=== PATIENT | female | born 1960 | race Two or more races ===

== ENCOUNTER → 2018-10-19 | Outpatient (CLI) | payer OTHER ==
--- NOTE | 2018-10-19 13:17 | WOMENS IMAGING REPORT ---
EXAM DESCRIPTION: BONE DENSITY HIP/SPINE COMPLETED DATE/TIME: 10/19/2018 1:02 pm REASON FOR STUDY: M81.0 AGRE ELATED OSTEOPOROSIS WITHOUT CURRENT PATHOLOGICAL FRACTURE M81.0 AGE-RE LATED OSTEOPOROSIS W/O CURRENT PATHOLOGICAL FRAC COMPARISON: None. TECHNIQUE: Dual-Energy X-ray Absorptiometry (DEXA) of the AP Spine and Hip. LIMITATIONS: None. FINDINGS: LUMBAR SPINE: The bone mineral density (BMD) measured from L1-L4 in the AP projection correlates with a T-score of -2.1, which is osteopenia as defined by the World Health Organization. HIP: The bone mineral density (BMD) measured in the left hip correlates with a T-score of -2.8, which is o steoporosis as defined by the World Health Organization. IMPRESSION: 1. LUMBAR SPINE: OSTEOPENIA. 2. HIP: OSTEOPOROSIS. COMMENT: The World Health Organization defines low BMD as follows: T-score: Normal: Greater than -1.0 Osteopenia: Between -1.0 and -2.5 Osteoporosis: Less than -2.5 without fractures Established osteoporosis: Less than -2.5 with fractures In general, you may wish to consider: Diagnosis Treatment Follow-up DEXA Normal BMD Prevention 2-3 years Osteopenia Prevention/Therapy 1-2 years Osteoporosis Therapy Yearly TECHNICAL DOCUMENTATION: JOB ID: [id number]- All Rights Reserved Reading location - IP/workstation name: [email or web address]
== END ==
LOC: WI 12:48 → EDSEX 13:00
PROVIDERS: ATTEND Physician Assistant
DX: M81.0 Age-related osteoporosis without current pathological fracture (principal)
CPT/HCPCS: 77080

== ENCOUNTER 2018-11-13 12:59 | Inpatient (IN) | payer OTHER ==
[2018-11-13] MEDS ORDERED: HYDROMORPHONE HCL INJ/PF 2 MG/ML AMPULE IV ONE ×2 (13:47)
--- NOTE | 2018-11-13 13:53 | ER Document Report ---
ED General - General Chief Complaint: Fall Stated Complaint: FALL RIGHT LEG PAIN Time Seen by Provider: 11/13/18 13:37 Primary Care Provider: YUE ESPINOSA PA [Primary Care Provider] - Follow up as needed TRAVEL OUTSIDE OF THE [place] IN LAST 30 DAYS: No - HPI Notes: Patient is a 58-year-old female with a history of MS who presents to the emergency department complaining of right hip pain status post fall prior to arrival. Patient states that she was on a tile floor when she reached for her portable table on wheels. Patient states that the table was not locked in place and she fell on her right hip. Patient states that she did not hit any other part of her body and did not have any loss of consciousness. Patient states that EMS had to help her off the floor because range of motion or movement in that leg increases her pain in the hip area. She otherwise has been feeling well and has been eating and drinking without difficulty. She has been able to urinate normally and have normal bowel movements prior. She is not on any blood thinning medication. Denies any headache, fever, head injury, neck pain, changes in vision/speech/mentation/hearing, URI, sore throat, chest pain, palpitations, syncope, cough, shortness of breath, wheeze, dyspnea, abdominal pain, nausea/vomiting/diarrhea, urinary retention, dysuria, hematuria, loss of control of bowel or bladder, numbness/tingling, saddle anesthesia, muscle paralysis, or rash. Past Medical History - Social History Smoking Status: Never Smoker Family History: Reviewed & Not Pertinent Review of Systems - Review of Systems -: Yes All other systems reviewed and negative Physical Exam - Notes Notes: PHYSICAL EXAMINATION: accompanied by female tech GENERAL: Well-appearing, well-nourished and in no acute distress. A&Ox4. Answers questions appropriately. HEAD: Atraumatic, normocephalic. Non-tender. No quick sign EYES: Pupils equal round and reactive to light, extraocular movements intact, sclera anicteric, conjunctiva are normal. No raccoon eyes/entrapment ENT: EAC clear b/l. TM's intact b/l without erythema, fluid, or perforation. Nares patent and without discharge. oropharynx clear without exudates. No tonsilar hypertrophy or erythema. Moist mucous membranes. No sinus tenderness. No hemotympanum/CSF discharge. NECK: Normal range of motion, supple without lymphadenopathy. No rigidity. No midline tenderness. Chest: No flail chest. equal rise/fall. Non-tender LUNGS: Breath sounds clear to auscultation bilaterally and equal. No wheezes rales or rhonchi. HEART: Regular rate and rhythm without murmurs, rubs, gallops. ABDOMEN: Soft, nontender, nondistended abdomen. No guarding, no rebound. Normal bowel sounds present. No CVA tenderness bilaterally. Musculoskeletal: Rt hip: LROM to passive/active due to pain. + tenderness rt proximal femur area to palp. N/V intact distal. No obvious deformity or ecchymosis/erythema. Ext's otherwise b/l: FROM to passive/active. Strength 5+/5. No deficits noted. No bony tenderness of extremities. Back: FROM to passive/active. Strength 5+/5. No vertebral point tenderness, stepoffs, or deformities. No other bony tenderness or ecchymosis. SLR negative b/l. Extremities: No cyanosis, clubbing, or edema b/l. Peripheral pulses 2+. Capillary refill less than 2 seconds. NEUROLOGICAL: NIH 0. GCS 15. Cranial nerves grossly intact. Normal speech. Normal sensory, motor exams (not pertaining to Rt hip). Reflexes 2+ b/l. NELSY's negative. Pronator drift negative. PSYCH: Normal mood, normal affect. SKIN: Warm, Dry, normal turgor, no rashes or lesions noted. Course - Re-evaluation Re-evalutation: 11/13/18 14:59 Pt presents with an intertrochanteric right hip fracture. Pre-op work up ordered. Last NPO was 11am. Call placed to Arabella [facility], accepted pt for admit. Pt/family in agreement. Vitals otherwise acceptable. Discharge - Discharge Clinical Impression: Closed right hip fracture Qualifiers: Encounter type: initial encounter Qualified Code(s): S72.001A - Fracture of unspecified part of neck of right femur, initial encounter for closed fracture Condition: Stable Disposition: ADMITTED INPATIENT Admitting Provider: Dr. Corrales Unit Admitted: Surgical Floor Referrals: YUE ESPINOSA PA [Primary Care Provider] - Follow up as needed
--- NOTE | 2018-11-13 14:59 | RADIOLOGY REPORT (SQ) ---
EXAM DESCRIPTION: HIP RIGHT AP/LATERAL COMPLETED DATE/TIME: 11/13/2018 2:22 pm REASON FOR STUDY: pain s/p fall COMPARISON: None. NUMBER OF VIEWS: Two views. TECHNIQUE: AP pelvis and additional frog-leg view of the right hip. LIMITATIONS: None. FINDINGS: MINERALIZATION: Normal. RIGHT HIP: Displaced intertrochanteric right hip fracture. The fracture extends into the lesser tro chanter of the hip. The proximal fracture fragment is rotated medially. LEFT HIP: No fracture or dislocation. No worrisome bone lesions. PUBIS AND ISCHIUM: No fracture. PELVIS: No fracture. SACRUM: No fracture or dislocation. No worrisome bone lesions. LOWER LUMBAR SPINE: No fracture or dislocation. No worrisome bone lesions. No significant disc disea se. SOFT TISSUES: Soft tissue edema. OTHER: No other significant finding. IMPRESSION: 1. Displaced slightly comminuted intertrochanteric right hip fracture. COMMENT: 1. The results of this examination were discussed with the emergency department provider o n 11/13/2018 at 14:52 hours. TECHNICAL DOCUMENTATION: JOB ID: [id number] [employer]- All Rights Reserved Reading location - IP/workstation name: [email or web address]
[2018-11-13] MEDS ORDERED: METOCLOPRAMIDE HCL INJ/PF 10 MG/2 ML SDV IV ONE (15:09)
--- NOTE | 2018-11-13 15:11 | RADIOLOGY REPORT (SQ) ---
EXAM DESCRIPTION: CHEST SINGLE VIEW COMPLETED DATE/TIME: 11/13/2018 3:02 pm REASON FOR STUDY: pre-op COMPARISON: None. NUMBER OF VIEWS: One view. TECHNIQUE: Single frontal radiographic view of the chest acquired. LIMITATIONS: None. FINDINGS: LUNGS AND PLEURA: The lung kendrick are hyperexpanded but clear. No consolidation or effusi ons. No pneumothorax. MEDIASTINUM AND HILAR STRUCTURES: No masses. Contour normal. HEART AND VASCULAR STRUCTURES: Heart normal in size. Normal vasculature. BONES: No acute findings. HARDWARE: None in the chest. OTHER: No other significant finding. IMPRESSION: Hyperexpansion otherwise negative chest. TECHNICAL DOCUMENTATION: JOB ID: [id number] [employer]- All Rights Reserved Reading location - IP/workstation name: [email or web address]
[2018-11-13] MEDS ORDERED: NORMAL SALINE 1000 ML 1,000 ML IV ONE (15:20)
[2018-11-13 15:38] LABS: ABSOLUTE LYMPHOCYTES (AUTO) 0.7 10^3/uL (0.5-4.7); ABSOLUTE MONOCYTES (AUTO) 0.5 10^3/uL (0.1-1.4); ABSOLUTE NEUT (AUTO) 9.1 10^3/uL (1.7-8.2); BASOPHILS % (AUTO) 0.5 % (0-2); EOSINOPHILS % (AUTO) 0.1 % (0-6); HEMATOCRIT 37.7 % (36.0-47.0); HEMOGLOBIN 12.6 g/dL (12.0-15.5); LYMPHOCYTES % (AUTO) 7.2 % (13-45); MEAN CORPUSCULAR HEMOGLOBIN 30.8 pg (27.0-33.4); MEAN CORPUSCULAR HGB CONC 33.3 g/dL (32.0-36.0); MEAN CORPUSCULAR VOLUME 93 fl (80-97); MONOCYTES % (AUTO) 4.7 % (3-13); PLATELET COUNT 215 10^3/uL (150-450); RED BLOOD COUNT 4.08 10^6/uL (3.72-5.28); RED CELL DISTRIBUTION WIDTH 12.6 % (11.5-14.0); SEGMENTED NEUTROPHILS % (AUTO) 87.5 % (42-78); TOTAL CELLS COUNTED % (AUTO) 100 %; WHITE BLOOD COUNT 10.4 10^3/uL (4.0-10.5)
[2018-11-13 15:55] LABS: INTERNATIONAL RATION (INR) 1.06; PROTHROMBIN TIME 14.3 SEC (11.4-15.4)
[2018-11-13 15:56] LABS: PARTIAL THROMBOPLASTIN TIME 23.5 SEC (23.5-35.8)
[2018-11-13 16:06] LABS: ALANINE AMINOTRANSFERASE 38 U/L (9-52); ALBUMIN 4.1 g/dL (3.5-5.0); ALKALINE PHOSPHATASE 69 U/L (38-126); ANION GAP 10 (5-19); ASPARTATE AMINO TRANSFERASE 23 U/L (14-36); BILIRUBIN,DIRECT 0.2 mg/dL (0.0-0.4); BILIRUBIN,TOTAL 0.9 mg/dL (0.2-1.3); BLOOD UREA NITROGEN 29 mg/dL (7-20); CALCIUM 9.6 mg/dL (8.4-10.2); CARBON DIOXIDE 27 mmol/L (22-30); CHLORIDE 104 mmol/L (98-107); GLUCOSE 128 mg/dL (75-110); POTASSIUM 4.1 mmol/L (3.6-5.0); SODIUM 140.8 mmol/L (137-145); TOTAL PROTEIN 6.8 g/dL (6.3-8.2)
--- NOTE | 2018-11-13 16:45 | PDOC H&P ---
History of Present Illness Admission Date/PCP: 11/13/18 15:09 ERICK GUILLAUME MD History of Present Illness: PRISCILLA GOODWIN is a 58 year old female The patient is a 58-year-old white female with a past medical history for possible sclerosis who slipped and fell at home and sustained a right hip injury. She was a community ambulator prior to the fall. She was brought to the emergency room where a right intertrochanteric femur fracture was identified. She is admitted to the orthopedic service for fracture management. Past Medical History Medical History: None - Multiple sclerosis, osteoporosis Pulmonary Medical History: Reports: None EENT Medical History: Reports: None Neurological Medical History: Reports: Multiple Sclerosis Endocrine Medical History: Reports: None Malignancy Medical History: Reports: None GI Medical History: Reports: None Musculoskeltal Medical History: Reports: None Past Surgical History Past Surgical History: Reports: None Social History Information Source: Patient, [facility] Records Lives with: Spouse/Significant other Smoking Status: Never Smoker - Advance Directive Resuscitation Status: Full Code Family History Family History: Reviewed & Not Pertinent Parental Family History Reviewed: No Children Family History Reviewed: No Sibling(s) Family History Reviewed.: No Medication/Allergy Home Medications: Dimethyl Fumarate [Tecfidera] 240 mg PO DAILY 11/13/18 Allergies/Adverse Reactions: No Known Allergies Allergy (Unverified 11/13/18 15:22) Review of Systems All systems: as per H Physical Exam Vital Signs: Temp Pulse Resp BP Pulse Ox 36.9 C 79 18 125/58 L 100 11/13/18 13:56 11/13/18 13:56 11/13/18 13:56 11/13/18 13:56 11/13/18 13:56 Physical Exam: The patient is a thin relatively apprehensive middle-aged white female lying in bed in minor to moderate distress. Her is seated nearby in the recliner. The patient is alert, oriented, and appropriate. General appearance: PRESENT: mild distress Head exam: PRESENT: normocephalic Respiratory exam: PRESENT: unlabored Cardiovascular exam: PRESENT: RRR Pulses: PRESENT: +1 pedal pulses bilateral GI/Abdominal exam: PRESENT: soft Rectal exam: PRESENT: deferred Extremities exam: PRESENT: other - Right lower extremity is flexed and externally rotated. Distal neurovascular examination is intact. Neurological exam: PRESENT: alert, awake, oriented to person, oriented to place, oriented to time, oriented to situation. ABSENT: motor sensory deficit Psychiatric exam: PRESENT: appropriate affect, normal mood. ABSENT: homicidal ideation, suicidal ideation Skin exam: PRESENT: dry, intact, warm. ABSENT: cyanosis, rash Results Laboratory Results: 11/13/18 15:28 11/13/18 15:28 11/13/18 11/13/18 15:28 15:28 WBC 10.4 RBC 4.08 Hgb 12.6 Hct 37.7 MCV 93 MCH 30.8 MCHC 33.3 RDW 12.6 Plt Count 215 Seg Neutrophils % 87.5 H Lymphocytes % 7.2 L Monocytes % 4.7 Eosinophils % 0.1 Basophils % 0.5 Absolute Neutrophils 9.1 H Absolute Lymphocytes 0.7 Absolute Monocytes 0.5 Absolute Eosinophils 0.0 Absolute Basophils 0.0 Sodium 140.8 Potassium 4.1 Chloride 104 Carbon Dioxide 27 Anion Gap 10 BUN 29 H Creatinine 0.54 Est GFR ( Amer) > 60 Est GFR (Non-Af Amer) > 60 Glucose 128 H Calcium 9.6 Total Bilirubin 0.9 AST 23 ALT 38 Alkaline Phosphatase 69 Total Protein 6.8 Albumin 4.1 Impressions: Hip/Pelvis X-Ray 11/13/18 13:46 IMPRESSION: 1. Displaced slightly comminuted intertrochanteric right hip fracture. Chest X-Ray 11/13/18 14:40 IMPRESSION: Hyperexpansion otherwise negative chest. Status: Imported from PACS Assessment & Plan - Diagnosis (1) Intertrochanteric fracture of right hip Qualifiers: Encounter type: initial encounter Fracture type: closed Fracture alig nment: displaced Qualified Code(s): S72.141A - Displaced intertrochanteric fracture of right femur, initial encounter for closed fracture Is this a current diagnosis for this admission?: Yes Plan: 58-year-old white female community ambulator with a right intertrochanteric femur fracture. Patient recently had a diagnosis of osteoporosis based on bone DEXA study in September 2018. Tentative plan will be for an open reduction internal fixation of the fracture and then address the underlying osteoporosis. - Time Time Spent: 50 to 70 Minutes Anticipated discharge: Home with Homehealth Within: within 48 hours
[2018-11-13] MEDS ORDERED: ONDANSETRON HCL INJ/PF 4 MG/2 ML SDV IV PRN (16:57)
[2018-11-13] MEDS: MORPHINE SULFATE 10 MG/ML INJ IV PRN ×2 (18:59→22:12)
--- NOTE | 2018-11-13 22:18 | Progress Note ---
Provider Note Provider Note: pt seen and examine and stable for surgery review all lab/cxr/medication/ekg
[2018-11-14] MEDS: MORPHINE SULFATE 10 MG/ML INJ IV PRN ×6 (02:02→22:17)
[2018-11-14] MEDS ORDERED: CEFAZOLIN 2 GM/D5W RTU 2 GM/50 ML RTUPB IV PRN (05:00)
[2018-11-14] MEDS ORDERED: TRANEXAMIC ACID INJ/PF 1,000 MG/10 ML SDV IV PRN (05:00)
[2018-11-14 06:10] LABS: ABSOLUTE LYMPHOCYTES (AUTO) 0.9 10^3/uL (0.5-4.7); ABSOLUTE MONOCYTES (AUTO) 0.8 10^3/uL (0.1-1.4); ABSOLUTE NEUT (AUTO) 5.8 10^3/uL (1.7-8.2); BASOPHILS % (AUTO) 0.3 % (0-2); EOSINOPHILS % (AUTO) 0.1 % (0-6); HEMATOCRIT 34.6 % (36.0-47.0); HEMOGLOBIN 11.8 g/dL (12.0-15.5); LYMPHOCYTES % (AUTO) 12.1 % (13-45); MEAN CORPUSCULAR HEMOGLOBIN 31.1 pg (27.0-33.4); MEAN CORPUSCULAR HGB CONC 34.1 g/dL (32.0-36.0); MEAN CORPUSCULAR VOLUME 91 fl (80-97); MONOCYTES % (AUTO) 10.7 % (3-13); PLATELET COUNT 143 10^3/uL (150-450); RED CELL DISTRIBUTION WIDTH 12.4 % (11.5-14.0); SEGMENTED NEUTROPHILS % (AUTO) 76.8 % (42-78); TOTAL CELLS COUNTED % (AUTO) 100 %; WHITE BLOOD COUNT 7.5 10^3/uL (4.0-10.5)
[2018-11-14 06:34] LABS: ANION GAP 8 (5-19); BLOOD UREA NITROGEN 20 mg/dL (7-20); CALCIUM 9.2 mg/dL (8.4-10.2); CARBON DIOXIDE 26 mmol/L (22-30); CHLORIDE 106 mmol/L (98-107); GLUCOSE 116 mg/dL (75-110); POTASSIUM 4.1 mmol/L (3.6-5.0); SODIUM 140.3 mmol/L (137-145)
[2018-11-14] MEDS: RINGERS SOLUTION,LACTATED 1,000 ML IV PRN ×2 (07:34→16:36)
--- NOTE | 2018-11-14 10:32 | EKG REPORT ---
SEVERITY:- ABNORMAL ECG - SINUS RHYTHM LEFT ATRIAL ABNORMALITY BORDERLINE T ABNORMALITIES, ANT-LAT LEADS BORDERLINE PROLONGED QT INTERVAL : Confirmed by: Artur Mcdaniel 14-Nov-2018 10:30:57
--- NOTE | 2018-11-14 12:29 | PDOC PROGRESS REPORT ---
Subjective Progress Note for:: 11/14/18 Subjective:: this is a 58-year-old female with a history of the multiple sclerosis currently on oral agent currently see a [place] [facility] used to see at [facility] with a history of the neurogenic bladder history of the recurrent urinary tract infections came to the emergency department with the fall and a right hip fracture admitted for the orthopedic surgery as per the medical consult Patient's denied any heart problems denied any strokes Patient is denied any chest pain to than any shortness of the breath Discussed with the on the bedside no other concerns Patient EKG chest x-ray's blood work is all stable Patient is currently scheduled for the surgery per orthopedic surgeon Patients may be get a benefit to go to the rehab after the surgery Reason For Visit: RIGHT HIP FRACTURE Right hip fracture Physical Exam Vital Signs: Temp Pulse Resp BP Pulse Ox 98.3 F 97 14 131/75 H 100 11/14/18 00:20 11/14/18 00:20 11/14/18 00:20 11/14/18 00:20 11/14/18 00:20 Intake & Output 11/13/18 11/14/18 11/15/18 06:59 06:59 06:59 Intake Total 1250 Output Total 1450 Balance -200 Weight 54.9 kg General appearance: PRESENT: no acute distress, well-developed, well-nourished Head exam: PRESENT: atraumatic, normocephalic Eye exam: PRESENT: conjunctiva pink, EOMI, PERRLA. ABSENT: scleral icterus Ear exam: PRESENT: normal external ear exam Mouth exam: PRESENT: moist, tongue midline Neck exam: PRESENT: full ROM. ABSENT: carotid bruit, JVD, lymphadenopathy, thyromegaly Respiratory exam: PRESENT: clear to auscultation alida Cardiovascular exam: PRESENT: RRR. ABSENT: diastolic murmur, rubs, systolic murmur Pulses: PRESENT: normal dorsalis pedis pul, +2 pedal pulses bilateral Vascular exam: PRESENT: normal capillary refill GI/Abdominal exam: PRESENT: normal bowel sounds, soft. ABSENT: distended, guarding, mass, organolmegaly, rebound, tenderness Rectal exam: PRESENT: deferred Extremities exam: ABSENT: pedal edema Neurological exam: PRESENT: alert, awake, oriented to person, oriented to place, oriented to time, oriented to situation, CN II-XII grossly intact. ABSENT: motor sensory deficit Psychiatric exam: PRESENT: appropriate affect, normal mood. ABSENT: homicidal ideation, suicidal ideation Skin exam: PRESENT: dry, intact, warm. ABSENT: cyanosis, rash Results Laboratory Results: 11/14/18 05:30 11/14/18 05:30 11/13/18 11/13/18 11/14/18 15:28 15:28 05:30 WBC 10.4 7.5 RBC 4.08 3.80 Hgb 12.6 11.8 L Hct 37.7 34.6 L MCV 93 91 MCH 30.8 31.1 MCHC 33.3 34.1 RDW 12.6 12.4 Plt Count 215 143 L Seg Neutrophils % 87.5 H 76.8 Lymphocytes % 7.2 L 12.1 L Monocytes % 4.7 10.7 Eosinophils % 0.1 0.1 Basophils % 0.5 0.3 Absolute Neutrophils 9.1 H 5.8 Absolute Lymphocytes 0.7 0.9 Absolute Monocytes 0.5 0.8 Absolute Eosinophils 0.0 0.0 Absolute Basophils 0.0 0.0 Sodium 140.8 Potassium 4.1 Chloride 104 Carbon Dioxide 27 Anion Gap 10 BUN 29 H Creatinine 0.54 Est GFR ( Amer) > 60 Est GFR (Non-Af Amer) > 60 Glucose 128 H Calcium 9.6 Total Bilirubin 0.9 AST 23 ALT 38 Alkaline Phosphatase 69 Total Protein 6.8 Albumin 4.1 11/14/18 05:30 WBC RBC Hgb Hct MCV MCH MCHC RDW Plt Count Seg Neutrophils % Lymphocytes % Monocytes % Eosinophils % Basophils % Absolute Neutrophils Absolute Lymphocytes Absolute Monocytes Absolute Eosinophils Absolute Basophils Sodium 140.3 Potassium 4.1 Chloride 106 Carbon Dioxide 26 Anion Gap 8 BUN 20 Creatinine 0.44 L Est GFR ( Amer) > 60 Est GFR (Non-Af Amer) > 60 Glucose 116 H Calcium 9.2 Total Bilirubin AST ALT Alkaline Phosphatase Total Protein Albumin Impressions: Hip/Pelvis X-Ray 11/13/18 13:46 IMPRESSION: 1. Displaced slightly comminuted intertrochanteric right hip f racture. Chest X-Ray 11/13/18 14:40 IMPRESSION: Hyperexpansion otherwise negative chest. Assessment & Plan - Diagnosis (1) Intertrochanteric fracture of right hip Qualifiers: Encounter type: initial encounter Fracture type: closed Fracture alignment: displaced Qualified Code(s): S72.141A - Displaced intertrochanteric fracture of right femur, initial encounter for closed fracture Is this a current diagnosis for this admission?: Yes Plan: This is scheduled for the surgery per orthopedic surgeon (2) Multiple sclerosis Is this a current diagnosis for this admission?: Yes Plan: Continues to p.o. medication and follow-up with neurology (3) Neurogenic bladder Is this a current diagnosis for this admission?: Yes Plan: Patient is currently having indwelling catheter (4) Osteoporosis Qualifiers: Presence of current pathological fracture: unspecified Is this a current diagnosis for this admission?: Yes Plan: Discussed with the patient and the outpatients Reclast injections - Time Time Spent with patient: 25-34 minutes Medications reviewed and adjusted accordingly: Yes Anticipated discharge: SNF Within: Other - Inpatient Certification Based on my medical assessment, after consideration of the patient's comorbidities, presenting symptoms, or acuity I expect that the services needed warrant INPATIENT care.: Yes I certify that my determination is in accordance with my understanding of Medicare's requirements for reasonable and necessary INPATIENT services [42 CFR 412.3e].: Yes Medical Necessity: Need for Surgery Post Hospital Care: D/C [employer] Re[employer] Inspector Documentation - Plan Summary Plan Summary: Continues the pain medications per the surgeon Continues to current home medications Discussed with the and the bedside
[2018-11-14] MEDS ORDERED: TRANEXAMIC ACID INJ/PF 1,000 MG/10 ML SDV IV ONE ×2 (12:43→16:00)
[2018-11-14] MEDS ORDERED: CEFAZOLIN INJ 1 GM VIAL ONE (12:43)
[2018-11-14] MEDS ORDERED: MIDAZOLAM 2 MG/2 ML INJ ONE (12:52)
[2018-11-14] MEDS ORDERED: FENTANYL CITRATE INJ/PF 100 MCG/2 ML AMPUL ONE (12:52)
[2018-11-14] MEDS ORDERED: PROPOFOL INJ 200 MG/20 ML VIAL IV ONE (12:53)
[2018-11-14] MEDS ORDERED: EPHEDRINE SULFATE INJ 50 MG/1 ML AMPULE ONE (12:53)
[2018-11-14] MEDS ORDERED: DIPHENHYDRAMINE HCL 50 MG/ML VIAL IV PRN (13:51)
[2018-11-14] MEDS ORDERED: ONDANSETRON HCL INJ/PF 4 MG/2 ML SDV IV PRN (13:51)
[2018-11-14] MEDS ORDERED: OXYCODONE-ACETAMINOPHEN 5-325 MG TABLET PO PRN ×2 (13:51)
[2018-11-14] MEDS ORDERED: MORPHINE SULFATE 10 MG/ML INJ IV PRN (13:51)
[2018-11-14] MEDS ORDERED: PROMETHAZINE HCL INJ 25 MG/1 ML VIAL IV PRN ×2 (13:51)
[2018-11-14] MEDS ORDERED: MEPERIDINE HCL/PF INJ 25 MG/1 ML DISP.SYRIN IV PRN (13:51)
[2018-11-14] MEDS ORDERED: FENTANYL CITRATE INJ/PF 100 MCG/2 ML AMPUL IV PRN ×3 (13:51)
--- NOTE | 2018-11-14 13:53 | Operative Report ---
Operative Report DATE OF SURGERY: 11/14/18 PREOPERATIVE DIAGNOSIS: Right intertrochanteric femur fracture OPERATION: Open reduction internal fixation right intertrochanteric femur fracture SURGEON: GIRMA HELM ANESTHESIA: Spinal ESTIMATED BLOOD LOSS: 75 PROCEDURE: With the patient supine on the fracture table the right lower extremity is manipulated fluoroscopic guidance to effect near anatomic reduction. Subsequently prepped and draped in sterile fashion. A guidepin is placed percutaneously into the greater trochanter down to the proximal femoral medullary Jomar canal. A combined reamer is used to fashion a cortical opening. Femoral length is measured to be 400 mm. Subsequently [employer] gamma 3 titanium femoral nail 400 mm x 11 mm x 130 degrees is advanced over the ball-tipped guide sinan for appropriate depth to allow proximal interlock central in the femoral head. A 95 mm proximal interlock was placed. Freehand a single 57.5 mm distal interlock was placed through dynamic hole. The wounds irrigated. The closed using interrupted Vicryl all of by john. Sterile compressive dressings were applied and the patient's return to the PACU in satisfactory condition.
--- NOTE | 2018-11-14 14:53 | RADIOLOGY REPORT (SQ) ---
EXAM DESCRIPTION: NO CHG FLUORO; HIP IN OPERATING RM COMPLETED DATE/TIME: 11/14/2018 2:20 pm REASON FOR STUDY: ORIF RIGHT HIP ASST WITH FLUORO IN OR COMPARISON: None. FLUOROSCOPY TIME: 1.5 minute Spot images saved to PACS. TECHNIQUE: Intra-operative images acquired during surgical procedure to evaluate progress. NUMBER OF IMAGES: 4 LIMITATIONS: None. FINDINGS: Fluoroscopy was provided for intraoperative procedure. Please refer to the operative repo rt for further discussion. IMPRESSION: IMAGE(S) OBTAINED DURING PROCEDURE. COMMENT: Quality ID [id number]: Final reports for procedures using fluoroscopy that document radiation exp osure indices, or exposure time and number of fluorographic images (if radiation exposure indices are not available) Please consult full operative report of the attending physician for description of the procedure. TECHNICAL DOCUMENTATION: JOB ID: [id number] [employer]- All Rights Reserved Reading location - IP/workstation name: [email or web address]
--- NOTE | 2018-11-14 14:53 | RADIOLOGY REPORT (SQ) ---
EXAM DESCRIPTION: NO CHG FLUORO; HIP IN OPERATING RM COMPLETED DATE/TIME: 11/14/2018 2:20 pm REASON FOR STUDY: ORIF RIGHT HIP ASST WITH FLUORO IN OR COMPARISON: None. FLUOROSCOPY TIME: 1.5 minute Spot images saved to PACS. TECHNIQUE: Intra-operative images acquired during surgical procedure to evaluate progress. NUMBER OF IMAGES: 4 LIMITATIONS: None. FINDINGS: Fluoroscopy was provided for intraoperative procedure. Please refer to the operative repo rt for further discussion. IMPRESSION: IMAGE(S) OBTAINED DURING PROCEDURE. COMMENT: Quality ID [id number]: Final reports for procedures using fluoroscopy that document radiation exp osure indices, or exposure time and number of fluorographic images (if radiation exposure indices are not available) Please consult full operative report of the attending physician for description of the procedure. TECHNICAL DOCUMENTATION: JOB ID: [id number] [employer]- All Rights Reserved Reading location - IP/workstation name: [email or web address]
[2018-11-14] MEDS: CEFAZOLIN SODIUM 2 GM in DEXTROSE 5%-WATER 100 ML IV SCH (22:24)
[2018-11-15] MEDS: MORPHINE SULFATE 10 MG/ML INJ IV PRN ×2 (05:59→09:13)
[2018-11-15] MEDS: CEFAZOLIN SODIUM 2 GM in DEXTROSE 5%-WATER 100 ML IV SCH (06:00)
[2018-11-15 06:15] LABS: HEMATOCRIT 33.5 % (36.0-47.0); HEMOGLOBIN 11.3 g/dL (12.0-15.5); MEAN CORPUSCULAR HEMOGLOBIN 31.1 pg (27.0-33.4); MEAN CORPUSCULAR HGB CONC 33.8 g/dL (32.0-36.0); MEAN CORPUSCULAR VOLUME 92 fl (80-97); PLATELET COUNT 126 10^3/uL (150-450); RED BLOOD COUNT 3.64 10^6/uL (3.72-5.28); RED CELL DISTRIBUTION WIDTH 12.5 % (11.5-14.0); WHITE BLOOD COUNT 7.8 10^3/uL (4.0-10.5)
[2018-11-15 06:39] LABS: ANION GAP 10 (5-19); BLOOD UREA NITROGEN 13 mg/dL (7-20); CALCIUM 8.9 mg/dL (8.4-10.2); CARBON DIOXIDE 27 mmol/L (22-30); CHLORIDE 101 mmol/L (98-107); GLUCOSE 112 mg/dL (75-110); POTASSIUM 3.8 mmol/L (3.6-5.0); SODIUM 138.4 mmol/L (137-145)
--- NOTE | 2018-11-15 06:55 | PDOC PROGRESS REPORT ---
Subjective Progress Note for:: 11/15/18 Reason For Visit: RIGHT HIP FRACTURE 58-year-old white female now postop day 1 status post open reduction internal fixation of a right intertrochanteric femur fracture. Patient complaining of muscle spasms overnight. Limited progress with physical therapy yesterday. Physical Exam Vital Signs: Temp Pulse Resp BP Pulse Ox 36.8 C 119 H 17 132/61 H 100 11/15/18 00:09 11/15/18 00:09 11/15/18 00:09 11/15/18 00:09 11/15/18 00:09 Intake & Output 11/13/18 11/14/18 11/15/18 06:59 06:59 06:59 Intake Total 1250 3260 Output Total 1450 725 Balance -200 2535 Weight 54.9 kg 55 kg Physical Exam: Thin middle-aged white female lying in bed in minor distress. She is complaining of muscle spasms in the right leg. Notably she has a tachycardia of 119 which is been persistent overnight. General appearance: PRESENT: mild distress Head exam: PRESENT: normocephalic Respiratory exam: PRESENT: unlabored Cardiovascular exam: PRESENT: tachycardia Vascular exam: PRESENT: normal capillary refill GI/Abdominal exam: PRESENT: soft Rectal exam: PRESENT: deferred Extremities exam: PRESENT: other - Right lower extremity dressings clean dry and intact. Leg lengths are equal. Distal neurovascular examination is intact. Neurological exam: PRESENT: alert, awake, oriented to person, oriented to place, oriented to time, oriented to situation. ABSENT: motor sensory deficit Skin exam: PRESENT: dry, intact, warm. ABSENT: cyanosis, rash Results Laboratory Results: 11/15/18 05:46 11/15/18 05:46 11/15/18 11/15/18 05:46 05:46 WBC 7.8 RBC 3.64 L Hgb 11.3 L Hct 33.5 L MCV 92 MCH 31.1 MCHC 33.8 RDW 12.5 Plt Count 126 L Sodium 138.4 Potassium 3.8 Chloride 101 Carbon Dioxide 27 Anion Gap 10 BUN 13 Creatinine 0.45 L Est GFR ( Amer) > 60 Est GFR (Non-Af Amer) > 60 Glucose 112 H Calcium 8.9 Impressions: Hip/Pelvis X-Ray 11/13/18 13:46 IMPRESSION: 1. Displaced slightly comminuted intertrochanteric right hip fracture. Chest X-Ray 11/13/18 14:40 IMPRESSION: Hyperexpansion otherwise negative chest. Fluoroscopy 11/14/18 00:00 IMPRESSION: IMAGE(S) OBTAINED DURING PROCEDURE. Hip X-Ray 11/14/18 00:00 IMPRESSION: IMAGE(S) OBTAINED DURING PROCEDURE. Status: Imported from PACS Assessment & Plan - Diagnosis (1) Intertrochanteric fracture of right hip Qualifiers: Encounter type: initial encounter Fracture type: closed Fracture alignment: displaced Qualified Code(s): S72.141A - Displaced intertrochanteric fracture of right femur, initial encounter for closed fracture Is this a current diagnosis for this admission?: Yes Plan: Patient to be mobilized with physical therapy and weightbearing as tolerated basis. Medication as needed. Anticipate need [facility] facility when bed available. (2) Tachycardia Is this a current diagnosis for this admission?: Yes Plan: Patient with an otherwise unexplained tachycardia overnight. It does not seem to be pain induced and all laboratory values appear to be normal. I think at this point we continue on a course of observation the patient is asymptomatic. - Time Time Spent with patient: 15-24 minutes Anticipated discharge: SNF Within: within 48 hours
--- NOTE | 2018-11-15 13:36 | PDOC PROGRESS REPORT ---
Subjective Progress Note for:: 11/15/18 Subjective:: Patient is currently doing fair Patient underwent for the right hip surgery Patient's pain under control Patient was mildly tachycardic most likely from the pain currently denied any other symptoms Reason For Visit: RIGHT HIP FRACTURE Physical Exam Vital Signs: Temp Pulse Resp BP Pulse Ox 98.7 F 112 H 18 126/59 H 98 11/15/18 08:08 11/15/18 08:08 11/15/18 08:08 11/15/18 08:08 11/15/18 08:08 Intake & Output 11/14/18 11/15/18 11/16/18 06:59 06:59 06:59 Intake Total 1250 3260 100 Output Total 1450 725 Balance -200 2535 100 Weight 54.9 kg 55 kg General appearance: PRESENT: no acute distress, well-developed, well-nourished Head exam: PRESENT: atraumatic, normocephalic Eye exam: PRESENT: conjunctiva pink, EOMI, PERRLA. ABSENT: scleral icterus Ear exam: PRESENT: normal external ear exam Mouth exam: PRESENT: moist, tongue midline Neck exam: PRESENT: full ROM. ABSENT: carotid bruit, JVD, lymphadenopathy, thyromegaly Respiratory exam: PRESENT: clear to auscultation alida Cardiovascular exam: PRESENT: RRR. ABSENT: diastolic murmur, rubs, systolic murmur Pulses: PRESENT: normal dorsalis pedis pul, +2 pedal pulses bilateral Vascular exam: PRESENT: normal capillary refill GI/Abdominal exam: PRESENT: normal bowel sounds, soft. ABSENT: distended, gua rding, mass, organolmegaly, rebound, tenderness Rectal exam: PRESENT: deferred Extremities exam: ABSENT: pedal edema Neurological exam: PRESENT: alert, awake, oriented to person, oriented to place, oriented to time, oriented to situation, CN II-XII grossly intact. ABSENT: motor sensory deficit Psychiatric exam: PRESENT: appropriate affect, normal mood. ABSENT: homicidal ideation, suicidal ideation Skin exam: PRESENT: dry, intact, warm. ABSENT: cyanosis, rash Results Laboratory Results: 11/15/18 05:46 11/15/18 05:46 11/15/18 11/15/18 05:46 05:46 WBC 7.8 RBC 3.64 L Hgb 11.3 L Hct 33.5 L MCV 92 MCH 31.1 MCHC 33.8 RDW 12.5 Plt Count 126 L Sodium 138.4 Potassium 3.8 Chloride 101 Carbon Dioxide 27 Anion Gap 10 BUN 13 Creatinine 0.45 L Est GFR ( Amer) > 60 Est GFR (Non-Af Amer) > 60 Glucose 112 H Calcium 8.9 Impressions: Hip/Pelvis X-Ray 11/13/18 13:46 IMPRESSION: 1. Displaced slightly comminuted intertrochanteric right hip fracture. Chest X-Ray 11/13/18 14:40 IMPRESSION: Hyperexpansion otherwise negative chest. Fluoroscopy 11/14/18 00:00 IMPRESSION: IMAGE(S) OBTAINED DURING PROCEDURE. Hip X-Ray 11/14/18 00:00 IMPRESSION: IMAGE(S) OBTAINED DURING PROCEDURE. Assessment & Plan - Diagnosis (1) Intertrochanteric fracture of right hip Qualifiers: Encounter type: initial encounter Fracture type: closed Fracture alignment: displaced Qualified Code(s): S72.141A - Displaced intertrochanteric fracture of right femur, initial encounter for closed fracture Is this a current diagnosis for this admission?: Yes Plan: Status post surgery (2) Multiple sclerosis Is this a current diagnosis for this admission?: Yes Plan: Continues to current medications (3) Neurogenic bladder Is this a current diagnosis for this admission?: Yes Plan: Patient is currently having indwelling catheter (4) Osteoporosis Qualifiers: Presence of current pathological fracture: unspecified Is this a current diagnosis for this admission?: Yes Plan: Discussed with the patient and the outpatients Reclast injections - Time Time Spent with patient: 15-24 minutes Medications reviewed and adjusted accordingly: Yes Anticipated discharge: SNF Within: Other - Plan Summary Plan Summary: Continues to current medications All labs stable
--- NOTE | 2018-11-15 14:00 | PDOC TRANSFER SUMMARY ---
General - Admit/Disc Date/PCP Admission Date/Primary Care Provider: 11/13/18 15:09 ERICK GUILLAUME MD Discharge Date: 11/15/18 - Discharge Diagnosis (1) Intertrochanteric fracture of right hip Is this a current diagnosis for this admission?: Yes (2) Tachycardia Is this a current diagnosis for this admission?: Yes - Additional Information Resuscitation Status: Full Code Home Medications: Dimethyl Fumarate [Tecfidera] 240 mg PO DAILY 11/13/18 History of Present Illness Admission Date/PCP: 11/13/18 15:09 ERICK GUILLAUME MD History of Present Illness: 58 yo WF with PMH MS presents with R intertroch fracture Hospital Course Hospital Course: PT admitted thru ER, underwent ORIF next day w/o complications Physical Exam Vital Signs: Temp Pulse Resp BP Pulse Ox 37.1 C 112 H 18 126/59 H 98 11/15/18 08:08 11/15/18 08:08 11/15/18 08:08 11/15/18 08:08 11/15/18 08:08 Intake & Output 11/14/18 11/15/18 11/16/18 06:59 06:59 06:59 Intake Total 1250 3260 100 Output Total 1450 725 Balance -200 2535 100 Weight 54.9 kg 55 kg General appearance: PRESENT: no acute distress, mild distress Head exam: PRESENT: normocephalic Respiratory exam: PRESENT: unlabored Cardiovascular exam: PRESENT: RRR Vascular exam: PRESENT: normal capillary refill GI/Abdominal exam: PRESENT: soft Rectal exam: PRESENT: deferred Musculoskeletal exam: PRESENT: other - RLE dry, leg lengths equal, NV intact Skin exam: PRESENT: dry, intact, warm. ABSENT: cyanosis, rash Results Laboratory Results: 11/15/18 05:46 11/15/18 05:46 11/15/18 11/15/18 05:46 05:46 WBC 7.8 RBC 3.64 L Hgb 11.3 L Hct 33.5 L MCV 92 MCH 31.1 MCHC 33.8 RDW 12.5 Plt Count 126 L Sodium 138.4 Potassium 3.8 Chloride 101 Carbon Dioxide 27 Anion Gap 10 BUN 13 Creatinine 0.45 L Est GFR ( Amer) > 60 Est GFR (Non-Af Amer) > 60 Glucose 112 H Calcium 8.9 Impressions: Hip/Pelvis X-Ray 11/13/18 13:46 IMPRESSION: 1. Displaced slightly comminuted intertrochanteric right hip fracture. Chest X-Ray 11/13/18 14:40 IMPRESSION: Hyperexpansion otherwise negative chest. Fluoroscopy 11/14/18 00:00 IMPRESSION: IMAGE(S) OBTAINED DURING PROCEDURE. Hip X-Ray 11/14/18 00:00 IMPRESSION: IMAGE(S) OBTAINED DURING PROCEDURE. Status: Imported from PACS Transfer Plan - Disposition Transfer Plan: SNF for [facility] Qualifiers - * PATIENT BEING DISCHARGED WITH ANY OF THE FOLLOWING DIAGNOSIS: No VTE patient discharged on overlapping Therapy?: Yes Acute Heart Failure Is this a Heart Failure Patient?: No Plan Discharge Plan: RTC [id number] 2 wks
[2018-11-15 15:44] VITALS: BP 95/75
== END 2018-11-15 16:18 | DRG 482 ==
LOC: ER 12:59 → EH 15:09 → 4S 16:58
PROVIDERS: ADMIT Orthopaedic Surgery; ATTEND Orthopaedic Surgery
PROC: 0QS606Z Reposition Right Upper Femur with Intramedullary Internal Fixation Device, Open Approach (ICD-10-PCS; principal; 2018-11-14 12:30)
DX: S72.141A Displaced intertrochanteric fracture of right femur, initial encounter for closed fracture (principal); W18.30XA Fall on same level, unspecified, initial encounter; Y92.019 Unspecified place in single-family (private) house as the place of occurrence of the external cause; G35 Multiple sclerosis; M81.0 Age-related osteoporosis without current pathological fracture; N31.9 Neuromuscular dysfunction of bladder, unspecified; R00.0 Tachycardia, unspecified; Z88.8 Allergy status to other drugs, medicaments and biological substances
CPT/HCPCS: 36415; 71045; 80048; 80053; 85025; 85027; 85610; 85730; 93005; 93010; 96374; 99285; C1713; C1769; J0690; J1170; J2250; J2270; J2405; J2704; J2765; J3010; J3490; J7030; J7060; J7120

== ENCOUNTER → 2020-05-06 | Outpatient (CLI) | payer OTHER ==
--- NOTE | 2020-05-06 14:52 | WOMENS IMAGING REPORT ---
EXAM DESCRIPTION: BILAT SCREENING MAMMO W/CAD IMAGES COMPLETED DATE/TIME: 05/06/2020 2:26 pm REASON FOR STUDY: ROUTINE SCREENING MAMMOGRAM Z12.31 Z12.31 ENCNTR SCREEN MAMMOGRAM FOR MALIGNANT N EOPLASM OF HECTOR COMPARISON: None. EXAM PARAMETERS: Standard craniocaudal and mediolateral oblique views of each breast recorded using digital acquisition. Read with the assistance of CAD. .[employer] Version 9.2 LIMITATIONS: None. FINDINGS: No suspicious masses, suspicious calcifications or architectural distortion. No areas of c oncern. IMPRESSION: NEGATIVE MAMMOGRAM. BIRADS 1 BREAST DENSITY: c. The breasts are heterogeneously dense, which may obscure small masses. BIRAD: ASSESSMENT: 1 NEGATIVE RECOMMENDATION: ROUTINE SCREENING COMMENT: The patient has been notified of the results by letter per MQSA requirements. Additional no tification policies are in place for contacting patient with suspicious or incomplete findings. Quality ID #[id number]: The [employer] recommends an annual screening mammogram for women aged 40 years or over. This facility utilizes a reminder system to ensure that all patients receive reminder letters, and/or direct phone calls for appointments. This includes reminders for routine scr eening mammograms, diagnostic mammograms, or other Breast Imaging Interventions when appropriate. Th is patient will be placed in the appropriate reminder system. TECHNICAL DOCUMENTATION: FINDING NUMBER: (1) ASSESSMENT: (1) JOB ID: [id number] 2010 [employer]- All Rights Reserved Reading location - IP/workstation name: [email or web address]
== END ==
LOC: WI 14:46
PROVIDERS: ATTEND Physician Assistant
DX: Z12.31 Encounter for screening mammogram for malignant neoplasm of breast (principal)
CPT/HCPCS: 77067